=== PATIENT | male | born 1970 | race Caucasian/White ===

== ENCOUNTER 2019-06-01 18:30 | Emergency (ER) | payer SELFPAY ==
[~2019-06-01] VITALS: Ht 172.7 cm; Wt 105.2 kg
[~2019-06-01 18:30] MED LIST: BACI28.34 TOP
[2019-06-01 18:36] VITALS: Ht 172.7 cm; Wt 105.2 kg
[2019-06-01 20:55] VITALS: BP 150/97; PULSE 75; RESP 18
== END 2019-06-01 20:56 | disposition home or self-care (01) ==
LOC: FTE 18:30
DX: S51.812A Laceration without foreign body of left forearm, initial encounter (principal); V49.40XA Driver injured in collision with unspecified motor vehicles in traffic accident, initial encounter; W25.XXXA Contact with sharp glass, initial encounter; Z23 Encounter for immunization
CPT/HCPCS: 73090; 90471; 90715